=== PATIENT | female | born 1975 | race Asian ===

== ENCOUNTER → 2017-10-17 | Outpatient (CLI) | payer OTHER | LOC: CFH 10:57 | PROVIDERS: ATTEND Family Medicine | DX: Z12.31 Encounter for screening mammogram for malignant neoplasm of breast (principal) | CPT/HCPCS: 77067 ==

== ENCOUNTER 2019-06-25 11:52 | Emergency (ER) | payer OTHER ==
[~2019-06-25] VITALS: Ht 170.2 cm; Wt 95.3 kg
[2019-06-25 12:24] LABS: BASOPHILS # (AUTO) 0.03 x10^3/uL (0-0.1); BASOPHILS % (AUTO) 1 % (0-1); EOSINOPHILS # (AUTO) 0.08 x10^3/uL (0-0.4); EOSINOPHILS % (AUTO) 2 % (1-7); LYMPHOCYTES # (AUTO) 1.56 x10^3/uL (1-3.4); LYMPHOCYTES % (AUTO) 36 % (22-44); MD NO; MEAN CORPUSCULAR HEMOGLOBIN 29.7 pg (27.0-34.8); MEAN CORPUSCULAR HGB CONC 34.1 g/dL (32.4-35.8); MEAN CORPUSCULAR VOLUME 87.1 fL (80-100); MEAN PLATELET VOLUME 7.3 fL (7.4-10.4); MONOCYTES # (AUTO) 0.19 x10^3/uL (0.2-0.8); MONOCYTES % (AUTO) 4 % (2-9); NEUTROPHILS # (AUTO) 2.51 x10^3/uL (1.8-6.8); NEUTROPHILS % (AUTO) 58 % (42-75); PLATELET COUNT 229 x10^3/uL (130-400); RED BLOOD COUNT 4.66 x10^6/uL (3.82-5.3); RED CELL DISTRIBUTION WIDTH 13.4 % (9.6-15.2)
[2019-06-25 12:34] LABS: ALANINE AMINOTRANSFERASE 30 U/L (12-78); ALBUMIN 3.6 g/dL (3.4-5.0); ANION GAP 8 mmol/L (5-15); CALCIUM 8.3 mg/dL (8.5-10.1); CHLORIDE 109 mmol/L (98-107); CREATININE 0.81 mg/dL (0.55-1.02)
[2019-06-25 12:39] LABS: ALKALINE PHOSPHATASE 32 U/L (45-117); BILIRUBIN,TOTAL 0.4 mg/dL (0.2-1.0); TOTAL PROTEIN 7.2 g/dL (6.4-8.2); TROPONIN I < 0.015 ng/mL (0.000-0.045)
--- NOTE | 2019-06-25 16:34 | NUR ---
TO ROOM FROM LOBBY. NAD.
--- NOTE | 2019-06-25 16:52 | NUR ---
Pt alert and resting on [employer] - Eye Tracking. Pt reports increased BP, headache and dizziness since last night. No other complaints. VS retaken. Pt resting on [employer] - Eye Tracking. NAD. Call light in place.
[2019-06-25 17:45] VITALS: BP 142/84
--- NOTE | 2019-06-25 17:45 | NUR ---
Pt dc'd to self care. Pt remains alert and oriented. NAD. Discharge teaching provided on medications, fluids, follow-up, and S/Sx to return. Pt VU. Pt ambulated out of ER.
== END 2019-06-25 17:49 | disposition home or self-care (01) ==
LOC: ED 17:15
DX: I10 Essential (primary) hypertension (principal); R51 Headache
CPT/HCPCS: 36415; 71046; 80053; 84484; 85025; 93005; 99284